=== PATIENT | female | born 1960 | race Two or more races ===

== ENCOUNTER 2016-10-20 06:03 | Outpatient (CLI) | payer BC ==
[2016-10-20] VITALS (10 sets, daily range): BP systolic 108–141; BP diastolic 62–91
[~2016-10-20] VITALS: Ht 152.4 cm; Wt 85.7 kg
[~2016-10-20 06:03] MED LIST: ALPR1TAB6 PO; BUPR300T3 PO; CETI10TA16 PO; CODEINE PHOSPHATE PO; CRESTOR40 MG PO; CYCL10TA2 PO; ERGO500027 PO; GUAIFENESIN PO; IBUP200T77 PO; IPRA3AMP NEB; ISOS60TA2 PO; METO50TA10 PO; PRED-220 PO; SERT100T PO
[2016-10-20] MEDS ORDERED: DIPH25CA58 PO (06:23)
[2016-10-20 06:36] LABS: HEMATOCRIT 37.9 % (36.0-47.0); HEMOGLOBIN 12.9 g/dL (12.0-15.5); RED BLOOD COUNT 4.36 x10^6/uL (3.50-5.40); WHITE BLOOD COUNT 6.8 x10^3/uL (4.0-11.0)
[2016-10-20 06:43] LABS: CREATININE 0.9 mg/dL (0.6-1.0); POTASSIUM 4.1 mmol/L (3.5-5.1)
[2016-10-20] MEDS ORDERED: LIDOCAINE 2% 20 ML VIAL. ONE (06:43)
[2016-10-20] MEDS ORDERED: IODIXANOL 320 MG/ML 100 ML VIAL. ONE (06:43)
[2016-10-20] MEDS ORDERED: HEPARIN for ARTERIAL LINE 1,500 ML ONE (06:43)
[2016-10-20 06:51] LABS: INR 0.9 (0.8-1.1); PROTHROMBIN TIME PATIENT 11.1 SEC (11.7-14.0)
[2016-10-20] MEDS ORDERED: NITROGLYCERIN 200 MCG/2 ML SYRINGE FOR CATH/VASC LAB. ONE (07:20)
[2016-10-20] MEDS ORDERED: HEPARIN for IV BOLUS 10,000 UNIT/10 ML VIAL. ONE (07:20)
[2016-10-20] MEDS ORDERED: VERAPAMIL 5 MG/2 ML VIAL. ONE (07:20)
[2016-10-20] MEDS ORDERED: MIDAZOLAM HCL/PF 2 MG/2 ML VIAL. ONE (07:21)
[2016-10-20] MEDS ORDERED: fentaNYL PF VIAL 100 MCG/2 ML VIAL ONE (07:21)
--- NOTE | 2016-10-20 07:26 | PDOC ---
MODERATE SEDATION ASSESSMENT RISKS/ALTERNATIVES Risks/Alternatives Risks and alternatives of this type of sedation and procedure discussed with: RISK/ALTERNATIVES: Patient H & P ON CHART H & P H & P on chart and reviewed for co-morbid conditions and appropriate labs. H&P ON CHART: Yes STATUS PREG STATUS ASSESSED: N/A MEDS/ALLERGIES REVIEWED Meds/Allergies Reviewed Medications and Allergies including time and route of recently administered narcotics and sedatives. MEDS/ALLERGIES REVIEWED: Yes ASA RATING ASA RATING: III AIRWAY ASSESSMENT Airway Assessment Airway patency, oral function limitations, presence of caps, crowns, dentures, partials, and ability to extend neck assessed. AIRWAY ASSESSMENT: Yes MALLAMPATI SCORE MALLAMPATI SCORE: III PRE-SEDATION ASSESSMENT PRE-SEDATION ASSESSMENT: Yes LILLIANA HERMOSILLO MD Oct 20, 2016 07:26
[2016-10-20] MEDS ORDERED: fentaNYL PF VIAL 100 MCG/2 ML VIAL IV ONE (07:45)
[2016-10-20] MEDS ORDERED: IODIXANOL 320 MG/ML 100 ML VIAL. IART ONE (07:45)
[2016-10-20] MEDS ORDERED: NITROGLYCERIN 200 MCG/2 ML SYRINGE FOR CATH/VASC LAB. IART ONE (07:45)
[2016-10-20] MEDS ORDERED: HEPARIN for IV BOLUS 10,000 UNIT/10 ML VIAL. IART ONE (07:45)
[2016-10-20] MEDS ORDERED: MIDAZOLAM HCL/PF 2 MG/2 ML VIAL. IV ONE (07:45)
[2016-10-20] MEDS ORDERED: VERAPAMIL 5 MG/2 ML VIAL. IART ONE (07:45)
[2016-10-20] MEDS ORDERED: LIDOCAINE 2% 20 ML VIAL. IJ ONE (07:45)
--- NOTE | 2016-10-20 08:06 | CARD ---
APPROVED REPORT Procedure(s) performed: Right transradial approach Left Heart Catheterization, Coronary angiography, Left ventriculogram. HISTORY The patient is a 55 year-old female with a history of : diabetes mellitus with no treatment, hyperten reed, dyslipidemia, family history of premature CAD. INDICATION The indication(s) include : unstable angina , Known prior CAD per patient history and recurrent sympt oms of exertional dyspnea in the setting of treated pulmonary disease. . CASE TECHNIQUE During this case, Fluoroscopy and low osmolar contrast were used for imaging. PROCEDURE NARRATIVE The patient was brought electively to the cardiac catheterization lab. A timeout was performed confi rming the patient's name, date of , procedure, and site of procedure. All necessary personnel w ere wearing the appropriate protective equipment and radiation monitor devices. After explaining the risks and benefits of the procedure and alternatives, informed consent was obtained. (See nursing no carlene for medications administered). The right wrist was sterilely prepped and draped in the usual fas hion. The right wrist was infiltrated with 1 mL of 2% lidocaine for subcutaneous anesthesia. A 6 Fr ench Terumo glide sheath was inserted into the right radial artery without difficulty. Right and lef t coronary angiography was performed using a 6Fr TIG 4.0 catheter. Left ventricular end diastolic pr essure was obtained with a pigtail catheter and pullback was performed after left ventriculography. All catheter exchanges and advancements were performed over a guidewire. At case completion the righ t radial sheath was removed and a Terumo radial band was applied with 13 ml of air. The patient tole rated the procedure well and there were no immediate complications. HEMODYNAMICS: LVEDP 18 mm Hg No gradient on LV to aortic pullback. LEFT VENTRICULOGRAM: EF 65% Anterobasal: Normal. Anterolateral: Normal Apical: Normal Diaphragmatic: Normal Posterobasal: Normal *No mitral regurgitation. CORONARY ANGIOGRAPHY: LM is a large caliber vessel with normal angiographic appearance. LAD is a large caliber vessel with normal angiographic appearance. Ramus is a moderate caliber vessel with a proximal 30% stenois. LCx is a large caliber dominant vessel with an ostial 30% stenosis and mild luminal irregularities. OM1 is a small caliber vessel with normal angiographic appearance. LPDA is a moderate caliber vessel with mild luminal irregularities. RCA is a small caliber non-dominant vessel. *Overall, flow suggestive of mild endothelial dysfunction. Conclusion 1. Mildly elevated left sided filling pressures. 2. Normal LV systolic function. EF 65% 3. Mild non-obstructive coronary artery disease. 4. Possible previously placed stent by history is not well seen on fluoroscopy but no gross high grad e lesions identified. Recommendations Aggressive Medical Therapy
== END 2016-10-20 10:23 | disposition home or self-care (01) ==
LOC: CCL 06:03
PROVIDERS: ATTEND Internal Medicine Cardiovascular Disease
DX: I20.0 Unstable angina (principal); I25.10 Atherosclerotic heart disease of native coronary artery without angina pectoris; I10 Essential (primary) hypertension; E78.5 Hyperlipidemia, unspecified; E11.9 Type 2 diabetes mellitus without complications; Z79.01 Long term (current) use of anticoagulants; E78.00 Pure hypercholesterolemia, unspecified; J44.9 Chronic obstructive pulmonary disease, unspecified; F41.9 Anxiety disorder, unspecified; F32.9 Major depressive disorder, single episode, unspecified; F17.200 Nicotine dependence, unspecified, uncomplicated; Z88.3 Allergy status to other anti-infective agents; Z91.048 Other nonmedicinal substance allergy status
CPT/HCPCS: 36415; 80048; 85027; 85610; 85730; 93458; 99152; 99153; C1769; C1892; J2250; J3010; J3490

== ENCOUNTER → 2018-03-01 | Outpatient (CLI) | payer BC, OTHER ==
[2016-10-20 09:40] VITALS: BP 137/62
[~2018-03-01] MED LIST changes: +DIPH25CA58 PO; +IOHEXOL 240 MG/ML 50ML VIAL. PO ONE; -IPRA3AMP NEB; +IPRA3AMP29 NEB; -METO50TA10 PO; +METO50TA29 PO
[2018-03-01] MEDS: IOHEXOL 300 MG/ML 100ML VIAL. IV ONE (09:00)
--- NOTE | 2018-03-01 14:24 | RAD ---
CT ABD PELV W/ORAL IV CONTRAST dated 03/01/2018 9:48 AM Indication: Pain.ABD PAIN WITH NAUSEA
OMNI 300 75ML, OMNI 240 50ML ORAL
NO PRIORS. Comparison: No comparison is available. Technique: Contiguous axial imaging of the abdomen and pelvis performed after the administration of 75 cc Omnipaque 300. One or more of the following individualized dose reduction techniques were utilized for this examination: 1. Automated exposure control 2. Adjustment of the mA and/or kV according to patient size 3. Use of iterative reconstruction technique Findings: Limited images of lung bases are clear. Scattered calcified granuloma. Heart size within normal limits. No pleural or pericardial effusion. Coronary artery calcifications. Liver, spleen, pancreas, adrenal glands, gallbladder and kidneys are unremarkable. No hydronephrosis. Partially opacified GI tract normal in caliber and contour. No focal bowel wall thickening. No inflammatory stranding in the mesentery. There are a few scattered diverticula within the colon. The appendix is normal in caliber. No ascites or lymphadenopathy. Images of pelvis show nondistended urinary bladder. Uterus is surgically absent. No free fluid or lymphadenopathy. Bone windows show no acute findings. Multilevel spondylosis. IMPRESSION: 1. No acute abnormality of abdomen or pelvis. Normal appendix. 2. Minimal diverticulosis with no evidence of acute diverticulitis. 3. Status post hysterectomy. Electronically signed by: Nick Harris MD (03/01/2018 2:21 PM) [id number]
== END | disposition home or self-care (01) ==
LOC: CT 08:19
PROVIDERS: ATTEND Internal Medicine Gastroenterology
DX: K57.30 Diverticulosis of large intestine without perforation or abscess without bleeding (principal); M47.896 Other spondylosis, lumbar region; I25.10 Atherosclerotic heart disease of native coronary artery without angina pectoris; J84.10 Pulmonary fibrosis, unspecified; Z90.710 Acquired absence of both cervix and uterus
CPT/HCPCS: 74177; Q9966; Q9967

== ENCOUNTER → 2019-04-03 | Outpatient (CLI) | payer OTHER ==
[2016-10-20 09:40] VITALS: BP 137/62
[~2019-04-03] MED LIST changes: -IOHEXOL 240 MG/ML 50ML VIAL. PO ONE
--- NOTE | 2019-04-03 14:25 | RAD ---
EXAM: 1. Cervical spine 2 views. 2. Lumbar spine 2 views. HISTORY: Neck and back pain. COMPARISON: None. FINDINGS: Retrolisthesis at C5-6 measures 3 mm. There is moderate degenerative disc disease at this level. No fractures are identified. There is no prevertebral soft tissue swelling. Facet osteoarthritis is moderate diffusely. Carotid atherosclerotic calcifications are noted. There is slight grade 1 anterolisthesis at L4-5. There is moderate to severe facet osteoarthritis from L4 through S1. Vertebral body heights are maintained and no fractures are identified. Disc heights are maintained. IMPRESSION: 1. 3 mm retrolisthesis at C5-6. Moderate degenerative disc disease at this level. 2. Grade 1 anterolisthesis at L4-5 from facet osteoarthritis. Electronically signed by: Whitney Gusman MD (04/03/2019 2:22 PM) [facility]
--- NOTE | 2019-04-03 14:27 | RAD ---
EXAM: KNEE BILAT 2V. HISTORY: Bilateral knee pain. COMPARISON: None. FINDINGS: On the left, there are chronic healed fracture deformities of the proximal tibial and fibular metaphyses. Medial compartment predominant osteoarthritis is moderate. There is a moderate joint effusion. There is mild tricompartmental osteoarthritis on the right. Loose bodies in the intercondylar notch posteriorly measure up to 10 mm. There is a small joint effusion. No acute fractures are noted bilaterally. IMPRESSION: 1. Medial compartment predominant tricompartmental osteoarthritis is moderate on the left and mild on the right. Multiple loose bodies on the right measure up to 10 mm. 2. Moderate left and small right joint effusions. Electronically signed by: Whitney Gusman MD (04/03/2019 2:24 PM) [facility]
== END | disposition home or self-care (01) ==
LOC: RAD 08:42
PROVIDERS: ATTEND Surgery
DX: M50.322 Other cervical disc degeneration at C5-C6 level (principal); M43.12 Spondylolisthesis, cervical region; M43.16 Spondylolisthesis, lumbar region; M47.817 Spondylosis without myelopathy or radiculopathy, lumbosacral region; M17.0 Bilateral primary osteoarthritis of knee; M25.461 Effusion, right knee; M25.462 Effusion, left knee; M23.41 Loose body in knee, right knee; I65.29 Occlusion and stenosis of unspecified carotid artery
CPT/HCPCS: 72040; 72100; 73560

== ENCOUNTER → 2020-11-03 | Outpatient (CLI) | payer OTHER ==
[2016-10-20 09:40] VITALS: BP 137/62
[~2020-11-03] MED LIST changes: -ISOS60TA2 PO; +ISOS60TA55 PO
--- NOTE | 2020-11-03 16:31 | RAD ---
EXAM: BILATERAL DIGITAL SCREENING MAMMOGRAPHY. HISTORY: Routine mammographic screening. TECHNIQUE: Bilateral full field digital images were obtained in CC and MLO projections. Computer-aide d detection was applied. COMPARISON: 05/21/2018, 05/19/2017. COMPOSITION: B. There are scattered areas of fibroglandular density. FINDINGS: There are interval changes of reduction mammoplasty. Coarse and scattered new calcification s superolaterally on the left most likely reflect fat necrosis in this setting. A nodule superiorly on the right does not have a direct correlate given interval operative changes. S ee annotations. BI-RADS CATEGORY 0: Incomplete--Needs Additional Imaging Evaluation. RECOMMENDATION: 1. Magnification images of new calcifications superolaterally on the left, likely reflecting fat necr osis in the setting of interval reduction mammoplasty. 2. Sonography of a nodule 3.5 cm superior to the right nipple to reestablish the patient's baseline. Electronically signed by: Whitney Gusman MD (11/03/2020 4:28 PM) [id number]
== END ==
LOC: MAMMO 10:02
PROVIDERS: ATTEND Family Medicine
DX: Z12.31 Encounter for screening mammogram for malignant neoplasm of breast (principal); R92.1 Mammographic calcification found on diagnostic imaging of breast
CPT/HCPCS: 77067

== ENCOUNTER → 2020-11-23 | Outpatient (CLI) | payer OTHER ==
[2016-10-20 09:40] VITALS: BP 137/62
--- NOTE | 2020-11-23 11:20 | RAD ---
EXAM: Left breast diagnostic mammogram; right breast sonogram. HISTORY: 60-year-old female presents for evaluation of microcalcifications within the left breast and nodularity within the right breast demonstrated on a screening mammogram dated 11/03/2020. TECHNIQUE: Full-field lateral and spot medication views of the left breast are obtained. Sonographic imaging of the right breast targeted to sites of mammographic nodularity was also performed. COMPARISON: 11/03/2020 and 05/21/2018 BREAST PARENCHYMAL DENSITY: Level B - Scattered fibroglandular densities. FINDINGS: There are 2 sets of clustered marked calcifications within the left breast. This includes a cluster of coarse microcalcifications at the 1:00 position centered approximately 6 cm from the nipp le and a segment of faint marked calcifications at the 12:00 position centered approximately 4 cm fro m the nipple. Given a history of interval reduction mammoplasty surgery, the morphology of the course calcifications at the 1:00 position favors fat necrosis. The calcifications at the 12:00 position de monstrate indeterminate morphology. No associated mass is seen. There is no architectural distortion. Sonographic imaging of the right breast and a straight no correlate for nodularity within the superio r breast in the mediolateral oblique projection on the prior sonogram, favoring a benign etiology or summation artifact. IMPRESSION: 1. Clustered microcalcifications with indeterminate morphology at the anterior 12:00 position of the left breast. Stereotactic guided biopsy is recommended. 2. Clustered microcalcifications with coarse morphology at the anterior 1:00 position of the left gonzalo ast, the appearance of which favors changes due to fat necrosis given a history of reduction mammopla sty surgery. Short-term follow-up with a left breast diagnostic mammogram including magnification vie ws in 6 months is recommended. 3. No suspicious sonographic correlate for in nodular asymmetry within the right breast. Six-month fo llow-up with a right breast diagnostic mammogram is recommended to confirm stability. 4. BI-RADS Category 4: Suspicious abnormality. Stereotactic guided biopsy of calcifications at the 12 :00 position of the left breast is recommended. These findings and recommendations were discussed with the patient and communicated to the medical as sistant for the referring physician at 1100 hours on 11/23/2020. If your mammogram demonstrates that you have dense breast tissue, which could hide abnormalities, and if you have other risk factors for breast cancer that have been identified, you might benefit from s upplemental screening tests that may be suggested by your ordering physician. Dense breast tissue, i n and of itself, is a relatively common condition. This information is not provided to cause undue c oncern, but rather to raise your awareness and to promote discussion with your physician regarding th e presence of other risk factors, in addition to dense breast tissue. A report of your mammography re sults will be sent to you and your physician. You should contact your physician if you have any ques tions or concerns regarding this report. Mammography is a sensitive method for finding small breast cancers, but it does not detect them all a nd is not a substitute for careful clinical examination. A negative mammogram does not negate a clin ically suspicious finding and should not result in delay in biopsying a clinically suspicious abnorma lity. PQRS compliance statement - Patient information was entered into a reminder system with a target due date for the next mammogram. "Our facility is accredited by the [employer] Mammography Program." Electronically signed by: Jessica Bear MD (11/23/2020 11:18 AM) [id number]
== END ==
LOC: MAMMO 10:10
PROVIDERS: ATTEND Family Medicine
DX: R92.1 Mammographic calcification found on diagnostic imaging of breast (principal)
CPT/HCPCS: 76641; 77065

== ENCOUNTER → 2020-11-24 | Outpatient (CLI) | payer OTHER ==
[2016-10-20 09:40] VITALS: BP 137/62
--- NOTE | 2020-11-24 08:50 | RAD ---
EXAM: Abdomen sonogram; pelvic sonogram. HISTORY: Pain. TECHNIQUE: Sonographic imaging of the abdomen and pelvis was performed. COMPARISON: None. FINDINGS: The uterus and ovaries are surgically absent. No adnexal mass or cyst is seen. There is no free fluid. The bladder is unremarkable. The liver is normal in size. The liver parenchyma is slightly echogenic. This can be seen with hepati c steatosis. No focal hepatic lesion is seen. The gallbladder is unremarkable. The common bile duct i s normal in caliber. The kidneys are normal in size. The pancreas, spleen, aorta and inferior vena ca va are unremarkable. IMPRESSION: 1. Surgically absent uterus and ovaries. 2. Suspected hepatic steatosis. 3. No acute sonographic finding. Electronically signed by: Jessica Bear MD (11/24/2020 8:48 AM) [id number]
== END ==
LOC: US 09:09
PROVIDERS: ATTEND Family Medicine
DX: R10.84 Generalized abdominal pain (principal); R10.30 Lower abdominal pain, unspecified; Z90.710 Acquired absence of both cervix and uterus
CPT/HCPCS: 76700; 76856

== ENCOUNTER → 2021-01-06 | Outpatient (CLI) | payer OTHER ==
[2016-10-20 09:40] VITALS: BP 137/62
[~2021-01-06] MED LIST changes: +LIDOCAINE 1% Multi-Dose 20 ML VIAL. INJ ONE; +LIDOCAINE 2%/EPI 1:100,000 20 ML VIAL. INJ ONE
--- NOTE | 2021-01-06 13:38 | RAD ---
EXAM: Stereotactic left breast biopsy; specimen radiograph; post-biopsy clip placement; unilateral po st-biopsy mammogram. HISTORY: 60-year-old female presents for stereotactic guided biopsy of a mycotic calcifications withi n the left breast demonstrate on studies performed 11/23/2020 and 11/03/2020. The patient has a history of reduction mammoplasty surgery. TECHNIQUE AND FINDINGS: The procedure and its risks and benefits were discussed with the patient. Ris ks discussed included, but were not limited to, pain, infection, bleeding and need for repeat biopsy. The patient provided verbal and written consent. A timeout was performed. Stereotactic images of the left breast was placed in craniocaudal compression. Images were obtained. The cluster of tiny calcifications within the anterior 12:30 position of the left breast demonstrated on the prior studies is not reproducible with stereotactic images. These few calcifications are scat tered and demonstrate benign morphology. No calcification with suspicious morphology or clustering is seen in this location. Therefore, the second set of adjacent indeterminate microcalcifications descr ibed on the prior exams targeted for tissue sampling with stereotaxis. The skin overlying this region was then sterilely prepped and infiltrated with a few cc 1% lidocaine for local anesthesia. Deeper s oft tissue anesthesia was administered with epinephrine in 1% lidocaine. A small skin incision was ma de and the biopsy device was advanced and appropriate positioning was confirmed with additional image s. Subsequently, multiple core biopsy samples were obtained with vacuum assistance. A plain radiograph o f the specimen was obtained, demonstrating inclusion of the calcifications of interest. Then, a post- biospy clip was advanced to the site of biopsy using the same guidance technique. A sterile bandage was placed, and the patient was transferred to the mammography suite for craniocaudal and mediolatera l oblique views. The post-biopsy mammogram was interpreted as a separate workstation and demonstrates immediate post-b iospy changes and a biopsy clip in expected position. The patient tolerated the procedure without dif ficulty and was discharged to home in stable condition with post-biospy care instructions. IMPRESSION: Successful stereotactic biospy of indeterminate microcalcifications within the 1:00 position of the l eft breast and post-biopsy clip placement. An addendum to this report will be submitted when patholog y results are available. Electronically signed by: Jessica Bear MD (01/06/2021 1:36 PM) [id number]
--- NOTE | 2021-01-07 15:09 | PATHOLOGY ---
[facility] Accession Number: [id number] . 01 Material submitted: . breast - LEFT BREAST TISSUE. Modifiers: left . 01 Clinical history: . LEFT BREAST CALCIFICATIONS LEFT BREAST STEREOTACTIC BIOPSY MICROCALCIFICATION . 02 Diagnosis: Breast tissue, left breast, stereotactic biopsies: - Focal scarring with pigmented histiocytes, chronic inflammation, cholesterol granulomas, and associated pleomorphic calcifications. - Stromal fibrosis, focal. . (JPM:mml; 01/07/2021) QLM 01/07/2021 1303 Local . 02 Comment: There is an area of scarring with pigmented histiocytes, chronic inflammation, cholesterol granulomas, and associated pleomorphic calcifications. They are empty spaces of varying size within the area of scarring and inflammation. The findings are suggestive of an area of organizing fat necrosis. There is no atypia or evidence of malignancy. . (JPM:mml; 01/07/2021) . 02 Electronically signed: . Jameel Hallman MD, Pathologist NPI- [id number] . 01 Gross description: . The specimen is received in formalin, labeled "Erendira Williamson, left breast" and consists of multiple fibro-fatty irregular tissues aggregating 2.9 x 2.0 x 0.5 cm which are received in a single blue cassette. These tissues are placed entirely in cassette A1. Also received free floating in the same container are multiple fatty irregular tissue fragments aggregating 1.8 x 0.9 x 0.2 cm. This portion of the specimen is filtered and submitted entirely in A2. The specimen is submitted in toto in A1-A2. The cold ischemic time is 9 minutes. The total time in formalin is 9 hours. ([place]; 01/06/2021) DKA/DKA 01/06/2021 1512 Local . 02 Pathologist provided ICD-10: L90.5, L98.9 . 02 CPT . 514890 Specimen Comment: A courtesy copy of this report has been sent to [phone], [phone] Specimen Comment: [id number], Specimen Comment: Report sent to , DR GUERRERO / DR ROLDAN Performed at: 01 [facility] [address], [place] [id number] MD John Paul Benson MD Phone: [phone] Performed at: 02 [facility] [address] [place], [place] [id number] MD Jameel Halmlan MD Phone: [phone]
== END ==
LOC: MAMMO 11:56
PROVIDERS: ATTEND Surgery
DX: R92.1 Mammographic calcification found on diagnostic imaging of breast (principal); N60.32 Fibrosclerosis of left breast; N61.0 Mastitis without abscess
CPT/HCPCS: 19081; 77065; J3490; 88305